=== PATIENT | male | born 1950 | race Caucasian/White ===

== ENCOUNTER 2019-08-16 10:42 | Emergency (ER) | payer MEDICARE ==
[2019-08-16] MEDS ORDERED: Adacel (T-DAP) 0.5 ML SYRINGE ONE (10:58)
[2019-08-16] MEDS ORDERED: Bacitracin 1 PK ONE (11:30)
== END 2019-08-16 11:40 | disposition home or self-care (01) ==
LOC: BURERS 10:42
DX: S51.812A Laceration without foreign body of left forearm, initial encounter (principal); F17.220 Nicotine dependence, chewing tobacco, uncomplicated; W26.8XXA Contact with other sharp object(s), not elsewhere classified, initial encounter
CPT/HCPCS: 12004; 90471; 90715